=== PATIENT | female | born 1950 | race Caucasian/White ===

== ENCOUNTER 2025-01-23 08:41 | Emergency (ER) | payer OTHER ==
[~2025-01-23] VITALS: Ht 152.4 cm; Wt 66.7 kg
[2025-01-23] MEDS: KETOROLAC TROMETHAMINE 30 MG INJ IVP ONE (09:07)
[2025-01-23] MEDS: METOCLOPRAMIDE HCL 10 MG/2 ML VIAL IV ONE (09:16)
[2025-01-23] MEDS: diphenhydrAMINE 50 MG/1 ML VIAL IV ONE (09:19)
[2025-01-23] MEDS ORDERED: METO-295 PO (10:00)
[2025-01-23] MEDS ORDERED: IBUP-1955 PO (10:00)
[2025-01-23 10:17] VITALS: BP 153/81; TEMP 97.9; O2SAT 100
[2025-01-23] MEDS ORDERED: DEXA4TAB68 PO (11:33)
== END 2025-01-23 10:17 | disposition home or self-care (01) ==
LOC: ER 08:41
DX: R51.9 Headache, unspecified (principal); G93.9 Disorder of brain, unspecified
CPT/HCPCS: 99285; 96374; 70450; 96375; J1885; J1200; J2765; A4606; A4663